=== PATIENT | female | born 1995 | race Caucasian/White ===

== ENCOUNTER 2018-08-11 10:32 | Emergency (ER) | payer OTHER ==
[2018-08-11] MEDS ORDERED: Ketorolac 60 MG/2 ML SDV IM ONE (10:40)
--- NOTE | 2018-08-11 10:40 | EDM.PDOC ---
ED HPI GENERAL MEDICAL PROBLEM - General Chief Complaint: Lower Extremity Injury/Pain Stated Complaint: SMASHED BIG TOE OF RIGHT FOOT Time Seen by Provider: 08/11/18 10:33 Source of Information: Reports: Patient History Limitations: Reports: No Limitations - History of Present Illness INITIAL COMMENTS - FREE TEXT/NARRATIVE: HISTORY AND PHYSICAL: History of present illness: Patient is a 23-year-old female who presents to the ED today with concern of left big toe injury that occurred just prior to arrival to the ED. Patient states she was moving a glass top off of a table which had fallen over and directly onto her left big toenail. Patient states part of the toenail has detached and is bleeding. Patient states she is up-to-date on her vaccinations. Patient states she's been able to walk on it and move it without difficulty. Patient denies any other symptoms or concerns at this time. Patient denies fever, chills, chest pain, shortness of breath, or cough. Denies headache, neck stiff ness, change in vision, syncope, or near syncope. Denies nausea, vomiting, abdominal pain, diarrhea, constipation, or dysuria. Has not noted any blood in urine or stool. Patient has been eating and drinking appropriately. Review of systems: As per history of present illness and below otherwise all systems reviewed and negative. Past medical history: As per history of present illness and as reviewed below otherwise noncontributory. Surgical history: As per history of present illness and as reviewed below otherwise noncontributory. Social history: See social history for further information Family history: As per history of present illness and as reviewed below otherwise noncontributory. Physical exam: General: Patient is alert, oriented, and in no acute distress. Patient sitting comfortably on exam table. HEENT: Atraumatic, normocephalic, pupils equal and reactive bilaterally, negative for conjunctival pallor or scleral icterus, mucous membranes moist, TMs normal bilaterally, throat clear, neck supple, nontender, trachea midline. No drooling or trismus noted. No meningeal signs. No hot potato voice noted. Lungs: Clear to auscultation, breath sounds equal bilaterally, chest nontender. Heart: S1S2, regular rate and rhythm without overt murmur Abdomen: Soft, nondistended, nontender. Negative for masses or hepatosplenomegaly. Negative for costovertebral tenderness. Pelvis: Stable nontender. Genitourinary: Deferred. Rectal: Deferred. Skin: Intact, warm, dry. No lesions or rashes noted. Extremities: Negative for cords or calf pain. Neurovascular unremarkable. Left big toe has partial/minimal lifting at the nail bed with mild bleeding. Subungual hematoma noted of the toenail. Patient has full range of motion of all digits of the left extremity. Capillary refill less than 2 seconds. Neuro: Awake, alert, oriented. Cranial nerves II through XII unremarkable. Cerebellum unremarkable. Motor and sensory unremarkable throughout. Exam nonfocal. Notes: Dr. Martinez verbally involved in patient care. Did offer to completely remove the toenail or try to fix the nail bed but patient prefers to just wrap it up as it is and let it heal on its own. I did use Steri-Strips to hold down the base of the nailbed. Usual and customary procedures were used to relieve the subungual hematoma of the left leg toe using electrocautery pen. Patient tolerated the procedure well. Discussed the importance of follow up with podiatry or primary care provider. Voices understanding and is agreeable to plan of care. Denies any further questions or concerns at this time. Diagnostics: Foot XR Therapeutics: Toradol, Subungual hematoma release, Steristrip nail Prescription: None Impression: Partial avulsion of toe tail, left first digit Subungual hematoma Plan: 1. You can alternate ibuprofen and Tylenol as directed for pain and discomfort. 2. Follow-up with the primary care provider or podiatry as discussed. Return to the ED as needed and as discussed. Definitive disposition and diagnosis as appropriate pending reevaluation and review of above. right big toe Pain Score (Numeric/FACES): 7 - Related Data Allergies Allergy/AdvReac Type Severity Reaction Status Date / Time No Known Allergies Allergy Verified 08/11/18 10:35 Home Meds: Home Meds . [No Known Home Meds] 08/11/18 [History] Review of Systems - Review of Systems Review Of Systems: ROS reveals no pertinent complaints other than HPI. ED EXAM, GENERAL - Physical Exam Exam: See Below (See dictation) Course - Vital Signs Last Recorded V/S: Last Vital Signs Temp 35.9 C 08/11/18 10:36 Pulse 59 L 08/11/18 10:36 Resp 16 08/11/18 10:36 BP 115/64 08/11/18 10:36 Pulse Ox 99 08/11/18 10:36 - Orders/Labs/Meds Orders: Active Orders 24 hr Category Date Time Status Communication Order [RC] STAT Care 08/11/18 11:37 Ordered Meds: Medications Discontinued Medications Generic Name Dose Route Start Last Admin Trade Name Sheldonq PRN Reason Stop Dose Admin Ketorolac Tromethamine 60 mg 08/11/18 10:40 08/11/18 10:57 Toradol IM 08/11/18 10:41 60 mg ONETIME ONE Administration Departure - Departure Time of Disposition: 11:35 Disposition: Home, Self-Care 01 Clinical Impression: Subungual hematoma Nail avulsion of toe Qualifiers: Encounter type: initial encounter Qualified Code(s): S91.209A - Unspecified open wound of unspecified toe(s) with damage to nail, initial encounter - Discharge Information Referrals: PCP,None [Primary Care Provider] - Forms: ED Department Discharge Additional Instructions: The following information is given to patients seen in the emergency department who are being discharged to home. This information is to outline your options for follow-up care. We provide all patients seen in our emergency department with a follow-up referral. The need for follow-up, as well as the timing and circumstances, are variable depending upon the specifics of your emergency department visit. If you don't have a primary care physician on staff, we will provide you with a referral. We always advise you to contact your personal physician following an emergency department visit to inform them of the circumstance of the visit and for follow-up with them and/or the need for any referrals to a consulting specialist. The emergency department will also refer you to a specialist when appropriate. This referral assures that you have the opportunity for follow-up care with a specialist. All of these measure are taken in an effort to provide you with optimal care, which includes your follow-up. Under all circumstances we always encourage you to contact your private physician who remains a resource for coordinating your care. When calling for follow-up care, please make the office aware that this follow-up is from your recent emergency room visit. If for any reason you are refused follow-up, please contact the [facility] Emergency Department at and asked to speak to the emergency department charge nurse. [facility] [address] [place] [address] [facility] [address] [place] [id number] 1. You can alternate ibuprofen and Tylenol as directed for pain and discomfort. 2. Follow-up with the primary care provider or podiatry as discussed. Return to the ED as needed and as discussed. - My Orders Last 24 Hours: My Active Orders 08/11/18 11:37 Communication Order [RC] STAT - Assessment/Plan Last 24 Hours: My Active Orders 08/11/18 11:37 Communication Order [RC] STAT
--- NOTE | 2018-08-11 11:11 | CR ---
INDICATION: Injury TECHNIQUE: Two views right foot. FINDINGS: No acute fracture, dislocation, or other bony abnormality. No radiopaque foreign body in the soft tissues about the great toe. IMPRESSION: Right foot is negative for fracture. No radiopaque foreign body in the soft tissues overlying the great toe. Dictated by Kathe Bowman MD @ Aug 11 2018 11:08AM Signed by Dr. Kathe Bowman @ Aug 11 2018 11:09AM
== END 2018-08-11 12:00 | disposition home or self-care (01) ==
LOC: MW.ED 10:32
DX: S91.202A Unspecified open wound of left great toe with damage to nail, initial encounter (principal); W20.8XXA Other cause of strike by thrown, projected or falling object, initial encounter
CPT/HCPCS: 11740; 73620; 96372; 99283; J1885

== ENCOUNTER 2019-01-29 05:31 | Emergency (ER) | payer BC, OTHER ==
[2019-01-29] MEDS ORDERED: Ondansetron 4 MG/2 ML SDV IVPUSH ONE ×2 (05:46→10:29)
[2019-01-29] MEDS ORDERED: Morphine 10 MG/ML Syringe IVPUSH ONE (05:51)
--- NOTE | 2019-01-29 06:02 | EDM.PDOC ---
<ReillyNafisaluann - Last Filed: 01/29/19 06:56> ED HPI GENERAL MEDICAL PROBLEM - General Chief Complaint: Abdominal Pain Stated Complaint: ABD PAIN Time Seen by Provider: 01/29/19 05:57 Source of Information: Reports: Patient History Limitations: Reports: No Limitations - History of Present Illness INITIAL COMMENTS - FREE TEXT/NARRATIVE: Patient is 24-year-old female with no past medical history presenting with chief complaint of right lower quadrant pain. Onset of pain was around 3:00 this morning. Pain was moderate in nature as it onset slightly improved and then gradually got worse. Patient reports associated nausea and vomiting. Patient denies fevers. Patient denies any diarrhea or urinary complaints. Patient denies any prior history of similar pain. Patient otherwise has been healthy and had no complaints going to bed last night. Patient reports having IUD and being sexually active. Patient's last menstrual period was on 17 January. Denies any sexually transmitted disease history. In addition to that documented in the HPI above, the additional ROS was obtained : Constitutional: Denies fevers or chills Eyes: Denies vision changes ENMT: Denies sore throat CV: Denies chest pain Resp: Denies SOB GI: Per HPI : Denies painful urination MSK: Denies recent trauma Skin: Denies new rashes Neuro: Denies new numbness or tingling or weakness Endocrine: Denies unexpected weight loss Heme: Denies bleeding disorders I have reviewed the triage vital signs Const: Uncomfortable appearing. Nontoxic. Actively vomiting. Eyes: PERRL, no conjunctival injection HENT: NCAT, Neck supple without meningismus CV: RRR, Warm, well-perfused extremities RESP: CTAB, Unlabored respiratory effort GI: Tender palpation of the right lower quadrant. No Rovsing sign. Soft abdomen without guarding, non-distended, no masses : YU Pritchard present for exam. External exam is unremarkable. Internal exam reveals cervical loss closed without any lesions or discharge. Patient has no CMT or adnexal tenderness. MSK: No gross deformities appreciated Skin: Warm, dry. No rashes Neuro: Alert, brazer electronic II-XII grossly intact. Sensation and motor function of extremities grossly intact. Psych: Appropriate mood and affect Right Lower Abdomen Pain Score (Numeric/FACES): 9 - Related Data Allergies Allergy/AdvReac Type Severity Reaction Status Date / Time No Known Allergies Allergy Verified 01/29/19 05:39 Home Meds: Home Meds Hydrocodone/Acetaminophen [Dwight 5-325 Tablet] 1 each PO Q6HR PRN 3 Days #15 tablet 01/29/19 [Rx] Phenazopyridine HCl [Pyridium] 100 mg PO Q12H #6 tablet 01/29/19 [Rx] Sulfamethoxazole/Trimethoprim [Septra DS] 1 each PO Q12H #10 tab 01/29/19 [Rx] Past Medical History Cardiovascular History: Reports: None Respiratory History: Reports: None Gastrointestinal History: Reports: None Musculoskeletal History: Reports: None Neurological History: Reports: None Psychiatric History: Reports: None Endocrine/Metabolic History: Reports: None Hematologic History: Reports: None Immunologic History: Reports: None Oncologic (Cancer) History: Reports: None Dermatologic History: Reports: None - Infectious Disease History Infectious Disease History: Reports: None - Past Surgical History Head Surgeries/Procedures: Reports: None HEENT Surgical History: Reports: Oral Surgery Social & Family History - Family History Family Medical History: Noncontributory - Tobacco Use Smoking Status *Q: Current Every Day Smoker Years of Tobacco use: 1 Packs/Tins Daily: 0.1 - Recreational Drug Use Recreational Drug Use: No ED ROS GENERAL - Review of Systems Review Of Systems: See Below ED EXAM, GI/ABD - Physical Exam Exam: See Below Course - Vital Signs Last Recorded V/S: Last Vital Signs Temp 97.4 F 01/29/19 05:34 Pulse 70 01/29/19 09:12 Resp 15 01/29/19 09:12 BP 124/69 01/29/19 09:12 Pulse Ox 99 01/29/19 09:12 - Orders/Labs/Meds Orders: Active Orders 24 hr Category Date Time Status Sodium Chloride 0.9% [Normal Saline] 1,000 ml Med 01/29/19 08:00 Active IV ASDIRECTED Sodium Chloride 0.9% [Normal Saline] 1,000 ml Med 01/29/19 08:45 Active IV ASDIRECTED Medication Orders Sodium Chloride (Normal Saline) 1,000 mls @ 999 mls/hr IV ASDIRECTED JORJE Last Admin: 01/29/19 08:02 Dose: 999 mls/hr Sodium Chloride (Normal Saline) 1,000 mls @ 999 mls/hr IV ASDIRECTED JORJE Last Admin: 01/29/19 08:40 Dose: 999 mls/hr Labs: Laboratory Tests 01/29/19 01/29/19 01/29/19 Range/Units 05:45 05:45 05:54 WBC 11.29 H (4.0-11.0) K/uL RBC 4.35 (4.30-5.90) M/uL Hgb 13.6 (12.0-16.0) g/dL Hct 39.1 (36.0-46.0) % MCV 89.9 (80.0-98.0) fL MCH 31.3 (27.0-32.0) pg MCHC 34.8 (31.0-37.0) g/dL RDW Std Deviation 42.7 (28.0-62.0) fl RDW Coeff of Darleen 13 (11.0-15.0) % Plt Count 253 (150-400) K/uL MPV 10.20 (7.40-12.00) fL Neut % (Auto) 77.7 (48.0-80.0) % Lymph % (Auto) 14.8 L (16.0-40.0) % [place] % (Auto) 6.9 (0.0-15.0) % Eos % (Auto) 0.5 (0.0-7.0) % Baso % (Auto) 0.1 (0.0-1.5) % Neut # (Auto) 8.8 H (1.4-5.7) K/uL Lymph # (Auto) 1.7 (0.6-2.4) K/uL [place] # (Auto) 0.8 (0.0-0.8) K/uL Eos # (Auto) 0.1 (0.0-0.7) K/uL Baso # (Auto) 0.0 (0.0-0.1) K/uL Nucleated RBC % 0.0 /100WBC Nucleated RBCs # 0 K/uL Sodium (136-145) mmol/L Potassium (3.5-5.1) mmol/L Chloride (98-107) mmol/L Carbon Dioxide (21.0-32.0) mmol/L BUN (7.0-18.0) mg/dL Creatinine (0.6-1.0) mg/dL Est Cr Clr Drug Dosing mL/min Estimated GFR (MDRD) ml/min Glucose (74-106) mg/dL Calcium (8.5-10.1) mg/dL Total Bilirubin (0.2-1.0) mg/dL AST (15-37) IU/L ALT (14-63) IU/L Alkaline Phosphatase (46-116) U/L Total Protein (6.4-8.2) g/dL Albumin (3.4-5.0) g/dL Globulin (2.6-4.0) g/dL Albumin/Globulin Ratio (0.9-1.6) Urine Color YELLOW Urine Appearance SLT CLOUDY Urine pH 6.0 (5.0-8.0) Ur Specific [place] >= 1.030 (1.001-1.035) Urine Protein NEGATIVE (NEGATIVE) mg/dL Urine Glucose (UA) NEGATIVE (NEGATIVE) mg/dL Urine Ketones TRACE H (NEGATIVE) mg/dL Urine Occult Blood LARGE H (NEGATIVE) Urine Nitrite NEGATIVE (NEGATIVE) Urine Bilirubin NEGATIVE (NEGATIVE) Urine Urobilinogen 0.2 (<2.0) EU/dL Ur Leukocyte Esterase NEGATIVE (NEGATIVE) Urine RBC 72-80 (0-2/HPF) Urine WBC 1-4 (0-5/HPF) Ur Epithelial Cells FEW (NONE-FEW) Urine Bacteria FEW (NEGATIVE) Urine HCG, Qual NEGATIVE (NEGATIVE) 01/29/19 Range/Units 05:54 WBC (4.0-11.0) K/uL RBC (4.30-5.90) M/uL Hgb (12.0-16.0) g/dL Hct (36.0-46.0) % MCV (80.0-98.0) fL MCH (27.0-32.0) pg MCHC (31.0-37.0) g/dL RDW Std Deviation (28.0-62.0) fl RDW Coeff of Darleen (11.0-15.0) % Plt Count (150-400) K/uL MPV (7.40-12.00) fL Neut % (Auto) (48.0-80.0) % Lymph % (Auto) (16.0-40.0) % [place] % (Auto) (0.0-15.0) % Eos % (Auto) (0.0-7.0) % Baso % (Auto) (0.0-1.5) % Neut # (Auto) (1.4-5.7) K/uL Lymph # (Auto) (0.6-2.4) K/uL [place] # (Auto) (0.0-0.8) K/uL Eos # (Auto) (0.0-0.7) K/uL Baso # (Auto) (0.0-0.1) K/uL Nucleated RBC % /100WBC Nucleated RBCs # K/uL Sodium 143 (136-145) mmol/L Potassium 3.3 L (3.5-5.1) mmol/L Chloride 106 (98-107) mmol/L Carbon Dioxide 24.9 (21.0-32.0) mmol/L BUN 14 (7.0-18.0) mg/dL Creatinine 0.9 (0.6-1.0) mg/dL Est Cr Clr Drug Dosing 83.23 mL/min Estimated GFR (MDRD) > 60.0 ml/min Glucose 123 H (74-106) mg/dL Calcium 9.1 (8.5-10.1) mg/dL Total Bilirubin 0.5 (0.2-1.0) mg/dL AST 14 L (15-37) IU/L ALT 22 (14-63) IU/L Alkaline Phosphatase 79 (46-116) U/L Total Protein 7.6 (6.4-8.2) g/dL Albumin 4.1 (3.4-5.0) g/dL Globulin 3.5 (2.6-4.0) g/dL Albumin/Globulin Ratio 1.2 (0.9-1.6) Urine Color Urine Appearance Urine pH (5.0-8.0) Ur Specific [place] (1.001-1.035) Urine Protein (NEGATIVE) mg/dL Urine Glucose (UA) (NEGATIVE) mg/dL Urine Ketones (NEGATIVE) mg/dL Urine Occult Blood (NEGATIVE) Urine Nitrite (NEGATIVE) Urine Bilirubin (NEGATIVE) Urine Urobilinogen (<2.0) EU/dL Ur Leukocyte Esterase (NEGATIVE) Urine RBC (0-2/HPF) Urine WBC (0-5/HPF) Ur Epithelial Cells (NONE-FEW) Urine Bacteria (NEGATIVE) Urine HCG, Qual (NEGATIVE) Meds: Medications Generic Name Dose Route Start Last Admin Trade Name Freq PRN Reason Stop Dose Admin Sodium Chloride 1,000 mls @ 999 mls/hr 01/29/19 08:00 01/29/19 08:02 Normal Saline IV 999 mls/hr ASDIRECTED JORJE Administration Sodium Chloride 1,000 mls @ 999 mls/hr 01/29/19 08:45 01/29/19 08:40 Normal Saline IV 999 mls/hr ASDIRECTED JORJE Administration Discontinued Medications Generic Name Dose Route Start Last Admin Trade Name Freq PRN Reason Stop Dose Admin Iopamidol 100 ml 01/29/19 06:28 Isovue Multipack-370 (76%) IVPUSH 01/29/19 06:29 ONETIME ONE Iopamidol 100 ml 01/29/19 07:10 01/29/19 07:10 Isovue Multipack-370 (76%) IVPUSH 01/29/19 07:11 100 ml ONETIME STA Administration Morphine Sulfate 6 mg 01/29/19 05:51 01/29/19 06:02 Morphine IVPUSH 01/29/19 05:52 6 mg ONETIME ONE Administration Morphine Sulfate 4 mg 01/29/19 08:36 01/29/19 08:40 Morphine IVPUSH 01/29/19 08:37 4 mg ONETIME ONE Administration Morphine Sulfate 4 mg 01/29/19 08:36 01/29/19 08:40 Morphine IVPUSH 01/29/19 08:37 Not Given ONETIME ONE Ondansetron HCl 4 mg 01/29/19 05:46 01/29/19 06:01 Zofran IVPUSH 01/29/19 05:47 4 mg ONETIME ONE Administration Ondansetron HCl 4 mg 01/29/19 06:58 01/29/19 07:22 Zofran IVPUSH 01/29/19 06:59 4 mg ONETIME ONE Administration Ondansetron HCl Confirm 01/29/19 07:19 01/29/19 07:53 Zofran Administered 01/29/19 07:20 Not Given Dose 4 mg .ROUTE .STK-MED ONE Phenazopyridine HCl 200 mg 01/29/19 10:06 Pyridium PO 01/29/19 10:07 ONETIME ONE Potassium Chloride 40 meq 01/29/19 06:45 01/29/19 07:11 Potassium Chloride PO 01/29/19 06:46 40 meq ONETIME ONE Administration Trimethoprim/Sulfamethoxazole 1 tab 01/29/19 10:05 Septra Ds PO 01/29/19 10:06 ONETIME ONE Departure - Departure Disposition: Home, Self-Care 01 Clinical Impression: Urethral calculus, Hydronephrosis due to obstruction of ureter - Discharge Information Instructions: Hydronephrosis Referrals: PCP,None [Primary Care Provider] - Forms: ED Department Discharge Additional Instructions: Take all medications as directed. Your Pyridium (bladder spasms medication) will turn your urine orange. This is normal. Please drink plenty of fluids which will aid in moving your small stone into your bladder. Rest for the next 24 hours. Follow up with your PCP in the next three to four days. Return to the ED if your condition gets worse or should you have any further concerns. Have a Merry Yvette and a Happy New Year. Sepsis Event Note - Evaluation Sepsis Screening Result: No Definite Risk - Focused Exam Vital Signs: Vital Signs Temp Pulse Resp BP Pulse Ox 01/29/19 09:12 70 15 124/69 99 01/29/19 06:46 63 18 123/71 98 01/29/19 05:34 97.4 F 78 18 137/85 100 Date Exam was Performed: 01/29/19 Time Exam was Performed: 06:56 - My Orders Last 24 Hours: My Active Orders 01/29/19 08:00 Sodium Chloride 0.9% [Normal Saline] 1,000 ml IV ASDIRECTED 01/29/19 08:45 Sodium Chloride 0.9% [Normal Saline] 1,000 ml IV ASDIRECTED - Assessment/Plan Last 24 Hours: My Active Orders 01/29/19 08:00 Sodium Chloride 0.9% [Normal Saline] 1,000 ml IV ASDIRECTED 01/29/19 08:45 Sodium Chloride 0.9% [Normal Saline] 1,000 ml IV ASDIRECTED Assessment:: Patient is 24-year-old female presenting with chief complaint of right lower quadrant abdominal pain. <Darrion Goode - Last Filed: 01/29/19 10:21> Course - Vital Signs Text/Narrative:: I am seeing Ms. Hernandes after being signed out to me by Dr. Reilly. I re- examined her. She presents with a chief complaint of right sided abdominal pain with pain into the right flank that started around 3:30AM this morning. She states that the pain woke her up. Her exam was essentially unremarkable except for moderate tenderness in the right lower to mid abdomen as well as right CVA tenderness. Review of her CT scan with contrast as reviewed with Dr. Vale at approx 8: 12AM reveals an obstructing 2.5mm stone in the distal right ureter with mild hydronephrosis. A complex right ovarian cyst was also noted. I discussed this with the patient and her and they understand why she is having her symptoms. I mentioned to them that she will most likely pass the stone and her pain will drop significantly. After 2 liters of normal saline and pain control she will most likely be discharged. Departure - Departure Time of Disposition: 10:07 Condition: Good - Discharge Information *PRESCRIPTION DRUG MONITORING PROGRAM REVIEWED*: Yes *COPY OF PRESCRIPTION DRUG MONITORING REPORT IN PATIENT RACHAEL: Yes Sepsis Event Note - Focused Exam Date Exam was Performed: 01/29/19 Time Exam was Performed: 10:07
[2019-01-29] MEDS ORDERED: Iopamidol 755 MG/ML 500 ML Multipack Bottle IVPUSH ONE (06:28)
[2019-01-29 06:39] LABS: BLOOD UREA NITROGEN,BUN 14 mg/dL (7.0-18.0); CARBON DIOXIDE,CO2 24.9 mmol/L (21.0-32.0); CHLORIDE,CL 106 mmol/L (98-107); GLUCOSE RANDOM 123 mg/dL (74-106); POTASSIUM,K 3.3 mmol/L (3.5-5.1); SODIUM,NA 143 mmol/L (136-145)
[2019-01-29] MEDS ORDERED: Potassium Chloride 10% 20 MEQ/15 ML Soln 30 ML UD Cup PO ONE (06:45)
[2019-01-29] MEDS ORDERED: Iopamidol 755 MG/ML 200 ML Multipack Bottle IVPUSH STA (07:10)
[2019-01-29] MEDS: Ondansetron 4 MG/2 ML SDV IVPUSH ONE ×2 (07:12→07:22)
[2019-01-29] MEDS ORDERED: Ondansetron 4 MG/2 ML SDV ONE ×2 (07:19→10:30)
--- NOTE | 2019-01-29 07:19 | CT ---
HISTORY: Right lower quadrant abdominal pain. TECHNIQUE: Intravenous contrast enhanced CT of the abdomen and pelvis. 100 mL of Isovue-370 intravenous contrast was administered. COMPARISON: No prior. FINDINGS: Focal fatty infiltration within the left hepatic lobe adjacent to the falciform ligament. No liver mass. No biliary ductal dilatation. Gallbladder does not appear overly distended. The spleen and adrenal glands are normal. There is no focal pancreatic abnormality or acute peripancreatic inflammatory change. - On the right, there is mild delay of the nephrogram. There is mild hydronephrosis and also hydro ureter. Small of perinephric fluid is present. There is also fluid tracking adjacent to the right ureter within the right retroperitoneum. On axial image #112 of series 201, there is a right pelvic calcification that measures approximately 2-3 mm in size. The distal right ureter is difficult follow as it blends in with adjacent soft tissue structures of the pelvis. It is therefore unclear whether this calcification relates to a small distal ureteral calculus or to a phlebolith. Additional delayed excretory phase images will be obtained for further clarification. An approximately 3 mm intrarenal calculus is present within the interpolar region right kidney on image #50 of series 201. No left-sided hydronephrosis. No left-sided hydroureter. Left pelvic calcification on image #115 represents a phlebolith. - No small bowel obstruction. No appendicitis. No colonic obstruction. No free air. - Small amount of pelvic free fluid. 4 cm left adnexal cystic structure likely represents an ovarian cyst. There is an IUD within the uterus. - No abdominal aortic aneurysm. No adenopathy. - No consolidation within the lung bases nor pleural effusion. - No acute bony abnormality. There is a transitional lumbosacral segment. IMPRESSION: 1. On the right, there is mild hydronephrosis and hydroureter. Small amount of perinephric fluid along with fluid tracking along the right ureter. Distal right ureter is not well differentiated from the adjacent soft tissues. 2-3 mm calcification within the right pelvis could represent either a distal ureteral calculus or a phlebolith. Additional delayed images in the excretory phase will be obtained to better delineate the course of the distal right ureter. Addendum to this report will follow when those images are available. 2. No appendicitis. 3. Small amount of pelvic free fluid. 4 cm cystic left adnexal structure is likely an ovarian cyst. IUD within the uterus. Dictated by Aldair Vale MD @ 01/29/2019 7:18:18 AM Please note that all CT scans at this facility use dose modulation, iterative reconstruction, and/or weight-based dosing when appropriate to reduce radiation dose to as low as reasonably achievable. Dictated by: Aldair Vale MD @ 01/29/2019 07:18:24 (Electronically Signed)
[2019-01-29] MEDS ORDERED: Sodium Chloride 0.9% 1,000 ML IV SCH ×2 (08:00→08:45)
[2019-01-29] MEDS ORDERED: Morphine 4 MG/ML Syringe IVPUSH ONE ×2 (08:36)
[2019-01-29] MEDS ORDERED: Sulfamethoxazole/Trimethoprim 800-160 MG Tab PO ONE (10:05)
[2019-01-29] MEDS ORDERED: Phenazopyridine 200 MG Tab PO ONE (10:06)
== END 2019-01-29 10:42 | disposition home or self-care (01) ==
LOC: MW.ED 05:31
DX: N21.1 Calculus in urethra (principal); N13.2 Hydronephrosis with renal and ureteral calculous obstruction; N83.201 Unspecified ovarian cyst, right side; F17.210 Nicotine dependence, cigarettes, uncomplicated
CPT/HCPCS: 36415; 74177; 80053; 81001; 81025; 85025; 96361; 96374; 96375; 96376; 99284; A9270; J2270; J2405; J7030; Q9967

== ENCOUNTER 2021-09-17 06:48 | Day surgery (SDC) | payer OTHER ==
[~2021-09-17 06:48] MED LIST: Lactated Ringers 1,000 ML IV SCH
[2021-09-17] MEDS ORDERED: Sodium Chloride 0.9% 2.5 ML Syringe FLUSH PRN (07:01)
[2021-09-17] MEDS ORDERED: Sodium Chloride 0.9% 10 ML Syringe FLUSH PRN (07:01)
[2021-09-17] MEDS ORDERED: Sodium Chloride 0.9% 20 ML SDV IV PRN (07:01)
[2021-09-17] MEDS ORDERED: Doxycycline 200 MG in Dextrose 5% in Water 250 ML IV ONE ×4 (07:03→07:45)
[2021-09-17] MEDS ORDERED: HYDROmorphone 1 MG/ML Syringe IVPUSH PRN (07:32)
[2021-09-17] MEDS ORDERED: Albuterol 0.083% 2.5 MG/3 ML Neb Soln NEB PRN (07:32)
[2021-09-17] MEDS ORDERED: fentaNYL 50 MCG/ML SDV IVPUSH PRN (07:32)
[2021-09-17] MEDS ORDERED: Metoclopramide 10 MG/2 ML SDV IVPUSH PRN (07:32)
[2021-09-17] MEDS ORDERED: Ondansetron 4 MG/2 ML SDV IVPUSH PRN (07:32)
[2021-09-17] MEDS ORDERED: Naloxone 0.4 MG/ML SDV IVPUSH PRN (07:32)
[2021-09-17] MEDS ORDERED: fentaNYL 250 MCG/5 ML SDV ONE (07:35)
[2021-09-17] MEDS ORDERED: Propofol 200 MG/20 ML SDV ONE (07:35)
[2021-09-17] MEDS ORDERED: Ketorolac 30 MG/ML SDV IVPUSH ONE (08:39)
[2021-09-17] MEDS ORDERED: Acetaminophen/HYDROcodone 325-5 MG Tab PO PRN (08:39)
[2021-09-17 08:43] LABS: POTASSIUM,K 3.2 mmol/L (3.5-5.1)
== END 2021-09-17 09:58 | disposition home or self-care (01) ==
LOC: MW.SDS 06:48
PROVIDERS: ATTEND Obstetrics & Gynecology
DX: O03.1 Delayed or excessive hemorrhage following incomplete spontaneous abortion (principal); F17.220 Nicotine dependence, chewing tobacco, uncomplicated
CPT/HCPCS: 36415; 59812; 80053; 85025; 86850; 86900; 86901; J1885; J2704; J3010; J3490; J7060; J7120; 01965

== ENCOUNTER 2022-07-07 07:56 | Inpatient (IN) | payer OTHER ==
[2022-07-07] MEDS: Lactated Ringers 1,000 ML IV SCH ×2 (09:00→12:12)
[2022-07-07] MEDS ORDERED: Carboprost Tromethamine 250 MCG/1 mL Vial IM PRN (09:03)
[2022-07-07] MEDS ORDERED: Ondansetron 4 MG/2 ML SDV IVPUSH PRN (09:03)
[2022-07-07] MEDS ORDERED: Butorphanol 1 MG/ML SDV IVPUSH PRN (09:03)
[2022-07-07] MEDS ORDERED: Sodium Chloride 0.9% 10 ML Syringe FLUSH PRN (09:03)
[2022-07-07] MEDS ORDERED: Lidocaine 1% 50 ML MDV INJECT PRN (09:03)
[2022-07-07] MEDS ORDERED: Water For Irrigation,Sterile 1,000 ML Container IRR PRN (09:03)
[2022-07-07] MEDS ORDERED: Tranexamic Acid 1,000 MG in Sodium Chloride 0.9% 100 ML IV PRN (09:03)
[2022-07-07] MEDS ORDERED: Sodium Chloride 0.9% 2.5 ML Syringe FLUSH PRN (09:03)
[2022-07-07] MEDS ORDERED: Misoprostol 200 MCG Tab PO PRN (09:03)
[2022-07-07] MEDS ORDERED: Terbutaline 1 MG/ML SDV SUBCUT PRN (09:03)
[2022-07-07] MEDS ORDERED: Sodium Chloride 0.9% 20 ML SDV IV PRN (09:03)
[2022-07-07] MEDS ORDERED: Methylergonovine 0.2 MG/1 ML Amp IM PRN (09:03)
[2022-07-07] MEDS ORDERED: Phenylephrine HCl 0.5 MG/5 ML AMP IVPUSH PRN (09:06)
[2022-07-07] MEDS ORDERED: ePHEDrine 50 MG/ML SDV IVPUSH PRN ×2 (09:06)
[2022-07-07] MEDS ORDERED: Oxytocin/0.9 % Sodium Chloride 30 UNIT/500 ML BAG IV SCH ×2 (09:15)
[2022-07-07] MEDS ORDERED: Ropivacaine HCl/PF 400 MG in Premix Bag 1 BAG EPIDUR SCH (09:15)
[2022-07-07 10:08] LABS: HEMOGLOBIN 12.6 g/dL (12.0-16.0); MEAN CORPUSCULAR HEMOGLOBIN 32.3 pg (27.0-32.0); MEAN CORPUSCULAR VOLUME 92.3 fL (80.0-98.0); PLATELET COUNT,PLT 277 K/uL (150-400)
[2022-07-07] MEDS ORDERED: Dexmedetomidine 200 MCG/2 ML SDV ONE (11:23)
[2022-07-07] MEDS ORDERED: Ibuprofen 400 MG Tab PO PRN (18:55)
[2022-07-07] MEDS ORDERED: oxyCODONE 5 MG Tab PO PRN (18:55)
[2022-07-07] MEDS ORDERED: Benzocaine/Menthol 20%-0.5% Spray 78 GM Cannister TOP PRN (18:55)
[2022-07-07] MEDS ORDERED: Acetaminophen 500 MG Tab PO PRN (18:55)
[2022-07-07] MEDS ORDERED: Bisacodyl 10 MG Supp RECTAL PRN (18:55)
[2022-07-07] MEDS ORDERED: Witch Hazel Medicated Pads 40/Jar TOP PRN (18:55)
[2022-07-07] MEDS ORDERED: Lanolin 100% Cream 7 GM Tube TOP PRN (18:55)
[2022-07-07] MEDS ORDERED: Docusate Sodium 100 MG Cap PO PRN (18:55)
[2022-07-07 19:02] LABS: PH,UMBILICAL ARTERIAL 7.249 (7.18-7.38); PH,UMBILICAL VENOUS 7.311 (7.25-7.45)
[2022-07-07] MEDS: Ibuprofen 800 MG Tab PO PRN (20:56)
[2022-07-08] MEDS: Acetaminophen 500 MG Tab PO PRN ×2 (04:40→14:18)
[2022-07-08 05:56] LABS: HEMATOCRIT 29.3 % (36.0-46.0); HEMOGLOBIN 10.1 g/dL (12.0-16.0)
[2022-07-08] MEDS: Ibuprofen 800 MG Tab PO PRN ×2 (08:27→22:46)
== END 2022-07-08 22:21 | disposition home or self-care (01) | DRG 807 ==
LOC: MW.OBCHECK 07:56 → MW.OB 07:57 → MW.OBCHECK 08:30 → MW.OB 08:31 → OBSVTOIN 18:03 → MW.OB 21:43
PROVIDERS: ADMIT Obstetrics & Gynecology; ATTEND Obstetrics & Gynecology
PROC: 10E0XZZ Delivery of Products of Conception, External Approach (ICD-10-PCS; principal; 2022-07-07)
PROC: 0HQ9XZZ Repair Perineum Skin, External Approach (ICD-10-PCS; 2022-07-07)
PROC: 0UQMXZZ Repair Vulva, External Approach (ICD-10-PCS; 2022-07-07)
PROC: 3E0R3BZ Introduction of Anesthetic Agent into Spinal Canal, Percutaneous Approach (ICD-10-PCS; 2022-07-07)
PROC: 00HU33Z Insertion of Infusion Device into Spinal Canal, Percutaneous Approach (ICD-10-PCS; 2022-07-07)
DX: O99.02 Anemia complicating childbirth (principal); Z37.0 Single live birth; O70.0 First degree perineal laceration during delivery; D64.9 Anemia, unspecified; Z3A.39 39 weeks gestation of pregnancy
CPT/HCPCS: 36415; 51702; 59025; 59409; 82803; 84112; 85014; 85018; 85027; 86592; 86850; 86900; 86901; A9270-GY; J0595; J2590; J3490; J7120